=== PATIENT | male | born 1990 | race Caucasian/White ===

== ENCOUNTER 2021-03-03 12:51 | Emergency (ER) | payer OTHER, SELFPAY ==
[2021-03-03 13:00] VITALS: BP 140/90; PULSE 98; RESP 18; TEMP 36.9; O2SAT 97; BMI 29.2
[2021-03-03] MEDS: Diphth,Pertus(ACell),Tet Adult 0.5 ML SYRINGE IM (13:17)
[2021-03-03 13:20] LABS: MANUAL DIFF FLAG NO
[2021-03-03 13:21] LABS: Basophils Absolute Auto 0.1 X10*3/uL (0.0-0.2); Basophils Percent Auto 1.1 % (0-2); Eosinophils Absolute Auto 0.1 X10*3/uL (0.0-0.4); Eosinophils Percent Auto 1.5 % (0-4); Hematocrit 46.7 % (42-52); Hemoglobin 15.4 g/dl (14.0-18.0); Imm Gran Abs Auto 0.03 X10*3/uL (0.00-0.03); Imm Gran Pct Auto 0.4 % (0.0-0.4); Lymphocytes Absolute Auto 1.5 X10*3/uL (1.2-4.9); Lymphocytes Percent Auto 18.1 % (20-40); Mean Corpuscular Hemoglobin 26.9 pg (27.0-33.0); Mean Corpuscular Volume 81.6 fL (80-98); Monocytes Absolute Auto 0.6 X10*3/uL (0.1-1.2); Monocytes Percent Auto 7.8 % (2-11); Neutrophils Absolute Auto 5.7 X10*3/uL (2.0-8.3); Neutrophils Percent Auto 71.1 % (45-73); Platelet Count 225 X10*3/uL (160-400); Red Blood Count 5.72 X10*6/uL (4.60-5.80); Red Cell Distribution Width 13.5 % (11.0-16.0); White Blood Count 8.1 X10*3/uL (4.8-10.8)
[2021-03-03] MEDS: Post Exposure Medication Kit 1 KIT PO (13:34)
[2021-03-03 13:47] LABS: Alanine Aminotransferase 27 U/L (0-40); Albumin Level 4.3 g/dL (3.5-5.0); Alkaline Phosphatase 66 U/L (39-117); Amylase 65 U/L (28-100); Anion Gap 12 (12-20); Aspartate Amino Transferase 16 U/L (5-37); Bilirubin Direct < 0.2 mg/dL (0.0-0.5); Bilirubin Total 0.5 mg/dL (0.0-1.0); Blood Urea Nitrogen 11 mg/dL (9-16); Calcium 9.5 mg/dL (8.4-10.2); Carbon Dioxide 26 mmol/L (22-29); Chloride 105 mmol/L (96-108); Creatinine Clr Calc Pharmacy 161.9; Estimated Glomerular Filt Rate > 60; Glucose Random 138 mg/dL (60-115); Lipase 21 U/L (8-78); Potassium 3.8 mmol/L (3.3-5.1); Sodium 139 mmol/L (135-145); Total Protein 6.8 g/dL (6.5-8.0)
[2021-03-06 08:03] LABS: HBS Num1 54.74 mIU/mL (0-7.99); HBc Num1 0.03 S/CO (0.00-0.79); HBsAGNum1 0.21 S/CO (0.00-0.99); Hepatitis B Core Antibody Nonreactive (Nonreactive); Hepatitis B Surface Antigen Negative (Negative); ~Hepatitis B Surface Antibody REACTIVE (Nonreactive)
[2021-03-06 08:08] LABS: HIV AB/AG Nonreactive (Nonreactive); HIV Num 1 0.04 S/CO (0.00-0.99); ~HepC Num1 0.08 S/CO (0.00-0.79); ~Hepatitis C Antibody Nonreactive (Nonreactive)
--- NOTE | 2021-03-07 17:52 | ED.SKABFB ---
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, HIV status of the patient is unknown, patient washed it with water and presents here Related Data Home Medications Medication Instructions Recorded Confirmed multivitamin 1 tab PO DAILY 03/03/21 03/03/21 Allergies Allergy/AdvReac Type Severity Reaction Status Date / Time cat dander [CAT] Allergy Unknown SNEEZING,THROAT Verified 03/03/21 13:02 DISCOMFORT Review of Systems Review of Systems: Accidental left index finger needlestick No numbness no weakness no tingling no other injury no skin rash no difficulty breathing no fainting PMFSH Past Medical History Source: nursing notes reviewed Medical History (Updated 03/03/21 @ 14:01 by FE Henriquez) No known health problems Social History Social History Advance Directives: No Advance Directives Information Provided: No Physical Exam Vital Signs: Vital Signs: Last Vital Signs Temp 98.5 F 03/03/21 13:00 Pulse 98 03/03/21 13:00 Resp 18 03/03/21 13:00 BP 140/90 H 03/03/21 13:00 Pulse Ox 97 03/03/21 13:00 Body Mass Index 29.2 General appearance no acute distress The neck is supple respiratory no distress extremities full range of motion x4 Left index finger has 0.5 cm superficial laceration on palmar surface distal phalanx Neuro no gross motor or Course Course Course Narrative: Discussion With patient about whether not to begin HIV prophylaxis, source patient's medical history is not well known and source patient did consent to testing so in agreement with the patient we started prophylaxis here and he will follow with employee health for further direction about whether to stop the medication pending source patient results MDM - Skin/Abscess/Foreign Bdy Lab Data Result diagrams: 03/03/21 13:16 03/03/21 13:16 Labs: Lab Results 03/03/21 03/03/21 03/03/21 Range/Units 13:16 13:16 13:16 WBC 8.1 (4.8-10.8) X10*3/uL RBC 5.72 (4.60-5.80) X10*6/uL Hgb 15.4 (14.0-18.0) g/dl Hct 46.7 (42-52) % MCV 81.6 (80-98) fL MCH 26.9 L (27.0-33.0) pg MCHC 33.0 (31.0-36.0) g/dl RDW 13.5 (11.0-16.0) % Plt Count 225 (160-400) X10*3/uL MPV 10.0 (9.4-12.4) fL Immature Gran % (Auto) 0.4 (0.0-0.4) % Neut % (Auto) 71.1 (45-73) % Lymph % (Auto) 18.1 L (20-40) % Craven % (Auto) 7.8 (2-11) % Eos % (Auto) 1.5 (0-4) % Baso % (Auto) 1.1 (0-2) % Lymph # (Auto) 1.5 (1.2-4.9) X10*3/uL Craven # (Auto) 0.6 (0.1-1.2) X10*3/uL Eos # (Auto) 0.1 (0.0-0.4) X10*3/uL Baso # (Auto) 0.1 (0.0-0.2) X10*3/uL Abs Immat Gran (auto) 0.03 (0.00-0.03) X10*3/uL Absolute Neuts (auto) 5.7 (2.0-8.3) X10*3/uL Absolute Nucleated RBC 0.000 (0.0-0.012) X10*3/uL Nucleated RBC % (auto) 0.0 (0.0-0.2) /100WBC Sodium 139 (135-145) mmol/L Potassium 3.8 (3.3-5.1) mmol/L Chloride 105 (96-108) mmol/L Carbon Dioxide 26 (22-29) mmol/L Anion Gap 12 (12-20) BUN 11 (9-16) mg/dL Creatinine 0.84 (0.5-1.4) mg/dL Estim Creat Clear Calc 161.9 Estimated GFR > 60 Random Glucose 138 H (60-115) mg/dL Calcium 9.5 (8.4-10.2) mg/dL Total Bilirubin 0.5 (0.0-1.0) mg/dL Direct Bilirubin < 0.2 (0.0-0.5) mg/dL AST 16 (5-37) U/L ALT 27 (0-40) U/L Alkaline Phosphatase 66 (39-117) U/L Total Protein 6.8 (6.5-8.0) g/dL Albumin 4.3 (3.5-5.0) g/dL Amylase 65 (28-100) U/L Lipase 21 (8-78) U/L Hep Bs Antigen Negative (Negative) Hep Bs Antibody REACTIVE (Nonreactive) Hep B Core Total Ab Nonreactive (Nonreactive) Hepatitis C Ab (EIA) Nonreactive (Nonreactive) HIV 1&2 Ab/P24 Ag 4thGn Nonreactive (Nonreactive) Discharge Plan Discharge Clinical Impression: Needlestick injury accident with exposure to body fluid Patient Disposition: Home, Self-Care Additional Instructions: Follow with [facility] to follow-up on all blood tests Hopefully the source patient will test negative for HIV and you can stop the anti HIV medications Until then take the anti HIV medications as prescribed Return any concerns We gave you a tetanus shot today Prescriptions: No Action multivitamin Tablet 1 tab PO DAILY RF: 0 Referrals: [facility] [Provider Group] - 2 days (Follow-up for needlestick injury with HIV prophylaxis provided) Interventions: ED Discharge Assessment Last Done: 03/03/21 14:03 Discharge Date/Time: 03/03/21 14:04
== END 2021-03-03 14:04 | disposition home or self-care (01) ==
PROVIDERS: Physician Assistant Medical; Emergency Provider Emergency Medicine; PCP Internal Medicine
DX: S61.239A Puncture wound without foreign body of unspecified finger without damage to nail, initial encounter (principal); Y28.9XXA Contact with unspecified sharp object, undetermined intent, initial encounter; Y93.9 Activity, unspecified; Y92.239 Unspecified place in hospital as the place of occurrence of the external cause; Y99.9 Unspecified external cause status; Z79.899 Other long term (current) drug therapy
CPT/HCPCS: 36415; 80048; 80076; 82150; 83690; 85025; 86704; 86706; 86803; 87340; 87389; 90471; 90715; 99283; 99284

== ENCOUNTER 2023-07-02 17:50 | Outpatient (REF) | payer OTHER, SELFPAY ==
[2023-07-02 18:57] LABS: Influenza A PCR NEGATIVE (Negative); Influenza B PCR NEGATIVE (Negative); Resp Syncy Virus RNA Qual PCR NEGATIVE (Negative); SARS COV2 PCR INHOUSE NEGATIVE (Negative)
== END 2023-07-02 17:51 | disposition home or self-care (01) ==
LOC: HO.HHCLNP 17:50
PROVIDERS: Visit Provider Internal Medicine
DX: Z20.822 Contact with and (suspected) exposure to COVID-19 (principal); B34.9 Viral infection, unspecified
CPT/HCPCS: 0241U

== ENCOUNTER 2023-10-01 16:16 | Outpatient (AMB) | payer OTHER, SELFPAY ==
[2023-10-01 16:21] VITALS: BP 128/90; PULSE 82; O2SAT 100; BMI 26.2
--- NOTE | 2023-10-01 16:21 | MHC.PC.OV ---
Vital Signs 10/01/23 16:21 Height 6 ft 2 in Weight 204 lb 0.6 oz BMI 26.2 BP 128/90 H Blood Pressure Location Lt brachial Position Sitting Pulse 82 Pulse Source Pulse Oximeter Pulse Oximetry (%) 100 Oxygen Delivery Method Room Air Intake Visit Reasons: est care Correspondence Analyst Required: No Allergies cat dander [CAT] Allergy (Unknown, Verified 10/01/23 16:31) SNEEZING,THROAT DISCOMFORT Medication List - Last Reconciled 10/01/23 by ANTONIETA Hernández multivitamin 1 tab PO DAILY Tobacco use date assessed: 10/01/23 Dental Screening Dental Screen Date: 10/01/23 Did you have a dental visit in the last 12 months?: Yes Did you have a dental problem in the last 6 months where you did not have access to dental care?: No Was dental information given to patient?: Patient has dentist HPI est care HPI Details Patient is a 33-year-old male who presents today to [facility]. Previous PCP Dr. Gardiner, last visit about 2 years ago. Medical history significant for anxiety, patient also reports that he has kidneys/ureters disorder and his previous PCP was monitoring his kidney functions-reports does not need to see urologist if no worsening, also reports he was told in the past that he has a mass in his nose and no need to follow-up per his previous PCP this was incidental finding on imaging. Patient would like to go back on escitalopram for anxiety, was taking this medication in the past with relief, stopped escitalopram about 2 years ago. He was taking escitalopram every other day due to sexual side effects. No shortness of breath or chest pain. Requesting STI screening, denies STI exposure. Reports intermittent nasal congestion, will try Flonase nasal spray. [facility] Medical History Needlestick injury accident with exposure to body fluid No known health problems Surgical History History of appendectomy Family History (Updated 10/01/23 @ 16:41 by ANTONIETA Hernández) Mother No problems noted. Father Asthma Liver mass Hepatitis C Social History Housing: House Patient Tobacco Use Status: Never used Tobacco service: No Current occupational status: employed Cognitive needs: No Hearing needs: No Vision needs: No Questionnaire PHQ-9 Over the last 2 weeks, how often have you been bothered by any of the following problems? 1. Little interest or pleasure in doing things: not at all 2. Feeling down, depressed, or hopeless: not at all 3. Trouble falling or staying asleep, or sleeping too much: not at all 4. Feeling tired or having little energy: not at all 5. Poor appetite or overeating: not at all 6. Feeling bad about yourself - or that you are a failure or have let yourself or your family down: not at all 7. Trouble concentrating on things, such as reading the newspaper or watching television: not at all 8. Moving or speaking so slowly that other people could have noticed. Or the opposite - being so fidgety or restless that you have been moving around a lot more than usual: not at all 9. Thoughts that you would be better off or of hurting yourself in some way: not at all Total score: 0 Depression Screening Interpretation: Negative Depression Screening Done: Yes 94249 - PHQ-9 Billing: Yes Source: Developed by Drs. Guy Mclaughlin, Morena Roth, Rodo Foster and colleagues, with an educational drake from [employer]. Thrive Questionnaire Date Thrive assessed: 10/01/23 I am a: Patient What is your living situation today?: I have a steady place to live Within the past 12 months, did the food you bought not last and you didn't have the money to get more?: Never true Within the past 12 months, did you worry whether your food would run out before you got money to buy more?: Never true Do you have trouble paying for medicines?: No Do you have trouble getting transportation to medical appointments?: No Do you have trouble paying your heating and electricity bill?: No Do you have trouble taking care of your child, family member or friend?: No Do you have trouble with day-to-day activities such as bathing, preparing meals, shopping, managing finances, etc.?: No Are you currently unemployed and looking for a job?: No Are you interested in more education?: No Currently or been in a relationship where the following occur: no concerns reported AUDIT C Alcohol Use Questionnaire (AUDIT-C) 1. How often do you have a drink containing alcohol?: Never 3. How often do you have six or more drinks on one occasion?: Never Total Score: 0 Score Reviewed/Action Taken: No BESSY-7 AMB Questionnaire BESSY-7 Date BESSY - 7 assessed: 10/01/23 Feeling nervous, anxious, or on edge: 1 = Several days Not being able to stop or control worryin = Several days Worrying too much about different things: 1 = Several days Trouble relaxin = Several days Being so restless that it is hard to sit still: 1 = Several days Becoming easily annoyed or irritable: 0 = Not at all Feeling afraid as if something awful might happen: 0 = Not at all Total BESSY-7 score (0-4 normal; 5-9 mild; 10-14 moderate; 15-21 severe): 5 Source: Developed by Drs. Guy Mclaughlin, Morena Roth, Rodo Foster and colleagues, with an educational drake from [employer]. BESSY-7 Assessment Billing BESSY-7 Assessment Tool: BESSY-7 Assessment 10251 Review of Systems Const Denies body aches, Denies chills, Denies fever(s) and Denies headache(s) Eyes Denies change in vision ENT Reports as per HPI, Denies dizziness, Denies otalgia, Denies headache(s), Denies nasal discharge, Denies sinus pain and Denies sore throat Card Denies chest pain, Denies edema, Denies lightheadedness and Denies dyspnea Resp Denies cough, Denies dyspnea and Denies wheezing GI Denies abdominal pain, Denies constipation, Denies diarrhea, Denies nausea and Denies vomiting Denies dysuria Musc Denies myalgias Skin/Breast Denies rash Neuro Denies dizziness and Denies headache(s) Aller/Immun Denies wheezing Physical exam (Primary Care) Vital Signs: Last Vital Signs Pulse 82 10/01/23 16:21 BP 128/90 H 10/01/23 16:21 Pulse Ox 100 10/01/23 16:21 Oxygen Delivery Method Room Air 10/01/23 16:21 BMI result Body Mass Index 26.2 Tobacco/Smoking Status: Tobacco use Status Tobacco use date assessed 10/01/23 10/01/23 16:23 Patient Tobacco Use Status Never used Tobacco 10/01/23 16:23 PHQ-9: PHQ-9 Score PHQ-9: Total score 0 10/01/23 16:34 Depression Screening Interpretation: Negative Thrive Assessment: Date of Thrive Assessment Date Thrive assessed 10/01/23 10/01/23 16:23 Currently or been in a relationship where the following occur: no concerns reported Const General: cooperative and no acute distress Orientation/consciousness: patient oriented x3 HENMT Head: Yes normocephalic and Yes atraumatic Ears: TM's normal bilaterally Face and sinus: Yes sinuses nontender Mouth: oropharynx normal and moist mucous membranes Throat: Yes posterior oropharynx normal Eyes General: appearance normal, both eyes and all related structures Pupils: Equal, round and reactive pupils present EOM: EOMs intact bilaterally Neck Neck: Yes normal visual inspection, Yes full ROM and Yes no lymphadenopathy Thyroid: Thyroid normal Resp Effort & Inspection: normal respiratory effort and able to speak in complete sentences Auscultation: clear to auscultation bilaterally, no crackles, no rales, no rhonchi and no wheezes Cardio Rate: regular rate Rhythm: regular rhythm Heart sounds: S1 normal heart sound present, S2 normal heart sound present and no murmurs GI Palpation (GI): Soft to palpation, not firm, nontender, no guarding, not rigid and no hepatosplenomegaly Auscultation: normal bowel sounds General: No CVA tenderness Back/Spine/Pelvis Back: No CVA tenderness Skin General skin exam: no rashes or lesions noted Neuro General: patient oriented x3 Cranial nerves: Yes Equal, round and reactive pupils present Gait exam (Neuro): Normal gait present Extrem General: Yes full ROM and No edema Assessment and Plan Assessment & Plan (1) Routine screening for STI (sexually transmitted infection): Code(s): Z11.3 - Encounter for screening for infections with a predominantly sexual mode of transmission (2) Encounter to establish care: Code(s): Z76.89 - Persons encountering health services in other specified circumstances Plan: Patient presents to establish care Blood work ordered (3) Anxiety: Code(s): F41.9 - Anxiety disorder, unspecified Plan: Start escitalopram 5 mg daily-educated about possible adverse reactions and when to notify provider Follow-up in 2 months Patient has declined counseling referral Orders: Orders TSH reflex Free T4 Today Z76.89 - Persons encountering health services in other specified circumstances Complete Blood Count Auto Diff Today Z7689 - Persons encountering health services in other specified circumstances Syphilis Screen Today Z11.3 - Encounter for screening for infections with a predominantly sexual mode of transmission Lipid Panel Today Z76.89 - Persons encountering health services in other specified circumstances Comprehensive [place]. Panel Fast Today Z76.89 - Persons encountering health services in other specified circumstances Hepatitis B,C Profile Today Z11.3 - Encounter for screening for infections with a predominantly sexual mode of transmission HIV Ab/Ag Today Z11.3 - Encounter for screening for infections with a predominantly sexual mode of transmission CT NG by PCR Today Z11.3 - Encounter for screening for infections with a predominantly sexual mode of transmission Medications: New escitalopram oxalate 5 mg PO DAILY 30 tabs 2RF F41.9 - Anxiety disorder, unspecified Coding Level of Care Code New Pt Level 3 (52910) Diagnoses Routine screening for STI (sexually transmitted infection) Z11.3 Encounter to establish care Z Anxiety F41.9 Additional Codes BESSY-7 Assessment Billing - BESSY-7 Assessment Tool: BESSY-7 Assessment 98073 ([id number])
== END 2023-10-01 16:48 | disposition home or self-care (01) ==
PROVIDERS: PCP Internal Medicine; Visit Provider Nurse Practitioner Family
DX: F41.9 Anxiety disorder, unspecified (principal); Z11.3 Encounter for screening for infections with a predominantly sexual mode of transmission; Z76.89 Persons encountering health services in other specified circumstances
CPT/HCPCS: 99203

== ENCOUNTER 2023-10-07 07:18 | Outpatient (REF) | payer OTHER, SELFPAY ==
[2023-10-07 07:41] LABS: MANUAL DIFF FLAG NO
[2023-10-07 08:19] LABS: Basophils Absolute Auto 0.1 X10*3/uL (0.0-0.2); Basophils Percent Auto 1.1 % (0-2); Eosinophils Absolute Auto 0.1 X10*3/uL (0.0-0.4); Eosinophils Percent Auto 1.6 % (0-4); Hemoglobin 15.6 g/dl (14.0-18.0); Imm Gran Abs Auto 0.02 X10*3/uL (0.00-0.03); Imm Gran Pct Auto 0.3 % (0.0-0.4); Lymphocytes Absolute Auto 1.7 X10*3/uL (1.2-4.9); Mean Corpuscular HGB Conc 32.5 g/dl (31.0-36.0); Mean Corpuscular Hemoglobin 27.2 pg (27.0-33.0); Mean Corpuscular Volume 83.6 fL (80.0-98.0); Mean Platelet Volume 10.8 fL (9.4-12.4); Monocytes Absolute Auto 0.6 X10*3/uL (0.1-1.2); Monocytes Percent Auto 7.9 % (2-11); Neutrophils Absolute Auto 4.9 x10*3/uL (2.0-8.3); Neutrophils Percent Auto 66.1 % (45-73); Platelet Count 228 X10*3/uL (160-400); Red Blood Count 5.74 X10*6/uL (4.60-5.80); White Blood Count 7.5 X10*3/uL (4.8-10.8)
[2023-10-07 08:59] LABS: Alanine Aminotransferase 17 U/L (0-40); Albumin Level 4.3 g/dL (3.5-5.0); Alkaline Phosphatase 70 U/L (39-117); Anion Gap 13 (12-20); Aspartate Amino Transferase 14 U/L (5-37); Bilirubin Total 0.3 mg/dL (0.0-1.0); Blood Urea Nitrogen 11 mg/dL (9-16); Calcium 9.4 mg/dL (8.4-10.2); Carbon Dioxide 27 mmol/L (22-29); Chloride 107 mmol/L (96-108); Cholesterol 160 mg/dL (<200); Estimated Glomerular Filt Rate > 60; Glucose Fasting 103 mg/dL (60-99); HDL Cholesterol 50 mg/dL (>40); LDL Cholesterol Calculated 102 mg/dL (<100); Potassium 4.1 mmol/L (3.3-5.1); Sodium 143 mmol/L (135-145); Total Protein 7.1 g/dL (6.5-8.0); Triglycerides 43 mg/dL (<150)
[2023-10-07 09:12] LABS: HBS Num1 48.26 mIU/mL (0-7.99); HBc Num1 0.05 S/CO (0.00-0.79); HBsAGNum1 0.29 S/CO (0.00-0.99); HIV AB/AG Nonreactive (Nonreactive); HIV Num 1 0.04 S/CO (0.00-0.99); Hepatitis B Core Antibody Nonreactive (Nonreactive); Hepatitis B Surface Antigen Negative (Negative); ~HepC Num1 0.11 S/CO (0.00-0.79); ~Hepatitis B Surface Antibody REACTIVE (Nonreactive); ~Hepatitis C Antibody Nonreactive (Nonreactive)
[2023-10-07 09:13] LABS: Syphilis Screen Nonreactive (Nonreactive)
[2023-10-07 09:14] LABS: TSH reflex Free T4 0.37 uIU/mL (0.32-4.0)
[2023-10-07 13:57] LABS: CT PCR NOT DETECTED (Not Detect.); NG PCR NOT DETECTED (Not Detect.)
== END 2023-10-07 07:19 | disposition home or self-care (01) ==
LOC: HO.LAB 07:18
PROVIDERS: Visit Provider Nurse Practitioner Family
DX: Z11.4 Encounter for screening for human immunodeficiency virus [HIV] (principal); Z76.89 Persons encountering health services in other specified circumstances; Z20.2 Contact with and (suspected) exposure to infections with a predominantly sexual mode of transmission
CPT/HCPCS: 0353U; 80053; 80061; 84443; 85025; 86704; 86706; 86780; 86803; 87340; 87389

== ENCOUNTER 2023-10-16 07:18 | Outpatient (REF) | payer OTHER, SELFPAY ==
[2023-10-16 07:57] LABS: Estimated Average Glucose 108 mg/dL; Hemoglobin A1c % 5.4 % (<6.0)
== END 2023-10-16 07:19 | disposition home or self-care (01) ==
LOC: HO.LAB 07:18
PROVIDERS: PCP Nurse Practitioner Family; Visit Provider Nurse Practitioner Family
DX: R73.01 Impaired fasting glucose (principal)
CPT/HCPCS: 36415; 83036

== ENCOUNTER 2025-01-25 09:15 | Outpatient (REF) | payer OTHER, SELFPAY ==
[2025-01-25 15:01] LABS: MANUAL DIFF FLAG NO
[2025-01-25 15:09] LABS: Basophils Absolute Auto 0.1 X10*3/uL (0.0-0.2); Basophils Percent Auto 1.5 % (0-2); Eosinophils Absolute Auto 0.2 X10*3/uL (0.0-0.4); Eosinophils Percent Auto 3.4 % (0-4); Hematocrit 45.5 % (42.0-52.0); Hemoglobin 14.9 g/dl (14.0-18.0); Imm Gran Abs Auto 0.01 X10*3/uL (0.00-0.03); Imm Gran Pct Auto 0.2 % (0.0-0.4); Lymphocytes Absolute Auto 1.4 X10*3/uL (1.2-4.9); Lymphocytes Percent Auto 21.4 % (20-40); Mean Corpuscular HGB Conc 32.7 g/dl (31.0-36.0); Mean Corpuscular Hemoglobin 26.9 pg (27.0-33.0); Mean Corpuscular Volume 82.3 fL (80.0-98.0); Mean Platelet Volume 11.2 fL (9.4-12.4); Monocytes Absolute Auto 0.5 X10*3/uL (0.1-1.2); Monocytes Percent Auto 8.3 % (2-11); Neutrophils Absolute Auto 4.2 x10*3/uL (2.0-8.3); Neutrophils Percent Auto 65.2 % (45-73); Platelet Count 236 X10*3/uL (160-400); Red Blood Count 5.53 X10*6/uL (4.60-5.80); Red Cell Distribution Width 14.3 % (11.0-16.0); White Blood Count 6.5 X10*3/uL (4.8-10.8)
[2025-01-25 15:36] LABS: Estimated Average Glucose 108 mg/dL; Hemoglobin A1c % 5.4 % (<6.0)
[2025-01-25 17:32] LABS: Alanine Aminotransferase 42 U/L (0-40); Albumin Level 4.3 g/dL (3.5-5.0); Alkaline Phosphatase 70 U/L (39-117); Anion Gap 9 (12-20); Aspartate Amino Transferase 36 U/L (5-37); Bilirubin Total 0.5 mg/dL (0.0-1.0); Blood Urea Nitrogen 11 mg/dL (9-16); Calcium 10.1 mg/dL (8.4-10.2); Carbon Dioxide 28 mmol/L (22-29); Chloride 107 mmol/L (96-108); Cholesterol 159 mg/dL (<200); Estimated Glomerular Filt Rate > 60; Glucose Random 96 mg/dL (60-115); HDL Cholesterol 51 mg/dL (>40); LDL Cholesterol Calculated 99 mg/dL (<100); Potassium 4.1 mmol/L (3.3-5.1); Sodium 140 mmol/L (135-145); Total Protein 7.2 g/dL (6.5-8.0); Triglycerides 46 mg/dL (<150)
[2025-01-25 17:35] LABS: TSH reflex Free T4 0.29 uIU/mL (0.32-4.0)
[2025-01-25 18:21] LABS: Free T4 (Free Thyroxine) 1.01 ng/dL (0.71-1.85)
[2025-01-26 08:05] LABS: HIV AB/AG Nonreactive (Nonreactive); HIV Num 1 0.06 S/CO (0.00-0.99); ~HepC Num1 0.14 S/CO (0.00-0.79); ~Hepatitis C Antibody Nonreactive (Nonreactive)
[2025-01-26 08:19] LABS: Syphilis Screen Nonreactive (Nonreactive)
== END 2025-01-25 09:16 | disposition home or self-care (01) ==
LOC: HO.CHCLDS 09:15
PROVIDERS: Visit Provider Internal Medicine
DX: Z00.00 Encounter for general adult medical examination without abnormal findings (principal); Z13.1 Encounter for screening for diabetes mellitus
CPT/HCPCS: 36415; 80053; 80061; 83036; 84439; 84443; 85025; 86780; 86803; 87389